=== PATIENT | male | born 1955 | race Caucasian/White ===

== ENCOUNTER → 2017-07-12 | Outpatient (CLI) | payer MEDICARE ==
[2016-09-06 13:09] VITALS: BP 126/72
[~2017-07-12] MED LIST: APIX5TAB PO; ASPI-630 PO; ATOR10TA60 PO; FAMO20TA5 PO; FLUT16SP NS; FURO40TA4 PO; LISI10TA2 PO; NITR0.4T22 SL; POLY17PO29 PO; SPIR25TA PO
--- NOTE | 2017-07-13 10:19 | CARD ---
APPROVED REPORT EXAM: Two-dimensional and M-mode echocardiogram with Doppler and color Doppler. Other Information Quality : GoodHR: 53bpm Rhythm : Atrial Fibrillation INDICATION Permanent atrial fibrillation 2D DIMENSIONS RVDd3.6 (2.9-3.5cm)Left Atrium(2D)6.0 (1.6-4.0cm) IVSd1.3 (0.7-1.1cm)Aortic Root(2D)3.3 (2.0-3.7cm) LVDd6.3 (3.9-5.9cm)PWd1.3 (0.7-1.1cm) LVDs4.3 (2.5-4.0cm)FS (%) 32.1 % SV119.7 mlLVEF(%)59.2 (>50%) Aortic Valve AoV Peak Gilberto.419.6cm/sAoV VTI93.7cm AO Peak GR.70.4mmHgLVOT Peak Gilberto.145.7cm/s AO Mean GR.39mmHg Mitral Valve MV E Peak Gr.8mmHgMV E Mean Gr.3mmHg Pulmonary Valve PV Peak Zypqykwh344.4cm/s Pulmonary Vein S1 Wmzyghnl91.8cm/s LEFT VENTRICLE The left ventricle is normal size. There is mild concentric left ventricular hypertrophy. The left ve ntricular systolic function is normal. The Ejection Fraction is 60%. There is normal LV segmental wal l motion. Tissue Doppler imaging reveals moderate left ventricular diastolic dysfunction. RIGHT VENTRICLE The right ventricle is normal size. There is normal right ventricular wall thickness. The right ventr icular systolic function is normal. There is a pacemaker lead in the right ventricle. ATRIA The left atrium is moderately dilated. The right atrium size is normal. The interatrial septum is int act with no evidence for an atrial septal defect or patent foramen ovale as noted on 2-D or Doppler i jesus. AORTIC VALVE The aortic valve is not well visualized but appears significantly calcified and does not open adequat omar. Doppler and Color Flow revealed moderate aortic regurgitation. By spectral Doppler criteria, the re is moderate aortic valvular stenosis. Calculated aortic valve area is 1.5 cm2 with maximum pressur e gradient of 70 mmHg and mean pressure gradient of 39 mmHg. The dimensionless index is .32 and is co nsistent with moderate aortic valvular stenosis. MITRAL VALVE Mitral annular calcification is moderate. The mitral valve leaflets are thickened. There is no eviden ce of mitral valve prolapse. There is no mitral valve stenosis. Doppler and Color Flow revealed no mi tral valve regurgitation noted. TRICUSPID VALVE Doppler and Color Flow revealed trace tricuspid valve regurgitation Unable to determine pulmonary art mario pressure at exam time. PULMONIC VALVE The pulmonary valve is not well visualized but appears to open adequately. Doppler and Color Flow rev ealed no pulmonic valvular regurgitation. There is no pulmonic valvular stenosis by spectral Doppler. GREAT VESSELS The aortic root is normal in size. The ascending aorta is normal in size. The pulmonary artery is nor mal. The IVC is normal in size and collapses >50% with inspiration. PERICARDIAL EFFUSION There is no evidence of significant pericardial effusion. Critical Notification Critical Value: No <Conclusion> The left ventricular systolic function is normal. The Ejection Fraction is 60%. The left atrium is moderately dilated. Moderate aortic valvular stenosis with mean pressure gradient of 39 mmHg and dimensionless index 0.32 . Moderate aortic regurgitation. Trace tricuspid valve regurgitation There is no evidence of significant pericardial effusion.
== END | disposition home or self-care (01) ==
LOC: ECHO 13:38
PROVIDERS: ATTEND Internal Medicine Cardiovascular Disease
DX: I48.2 Chronic atrial fibrillation (principal)
CPT/HCPCS: 93306